=== PATIENT | male | born 1990 | race Caucasian/White ===

== ENCOUNTER → 2019-07-08 | Outpatient (CLI) | payer OTHER ==
--- NOTE | 2019-07-08 10:45 | CT ---
EXAMINATION TYPE: CT sinus wo con DATE OF EXAM: 07/08/2019 COMPARISON: NONE HISTORY: Acute sinusitis per order. Headaches with dizziness and nausea for a few weeks per patient. CT DLP: 593.70 mGycm. Automated Exposure Control for Dose Reduction was Utilized. TECHNIQUE: CT scan of the sinuses is performed without contrast, axial images are obtained, coronal r eformatted images are also reviewed. FINDINGS: Mild lobulated mucosal thickening inferiorly in both maxillary sinuses. Remainder of [place] sinuses are clear without suspicious opacification or air-fluid levels. The ostiomeatal complex is patent bilaterally on coronal image 17. Visualized portion of mastoid air cells show no abnormal opacification. Some patchy soft tissue densi ty bilateral extra auditory canals is thought to reflect cerumen. The globes are intact bilaterally. Visualized brain parenchyma unremarkable. Slight asymmetric prominence supraclinoid segment distal r ight internal carotid artery axial image 34. IMPRESSION: Mild bilateral inferior chronic maxillary sinus disease. No acute sinusitis identified c urrently. Cannot exclude aneurysm distal right internal carotid artery. Advise CTA or MRA of the circ le of [place] follow-up.
== END | disposition home or self-care (01) ==
LOC: RADCTMAIN 08:16
PROVIDERS: ATTEND Family Medicine
DX: J32.0 Chronic maxillary sinusitis (principal)
CPT/HCPCS: 70486

== ENCOUNTER → 2019-08-15 | Outpatient (CLI) | payer OTHER ==
--- NOTE | 2019-08-15 15:32 | CT ---
EXAMINATION TYPE: CT angio neck DATE OF EXAM: 08/15/2019 HISTORY: Rt internal carotid artery aneurysm COMPARISON: 07/08/2019 CT DLP: 312.6 mGycm. Automated Exposure Control for Dose Reduction was Utilized. TECHNIQUE: CTA scan of the neck is performed with IV Contrast, patient injected with 65 mL of Isovue 370, axial images are obtained, coronal and sagittal reformatted images are reviewed. Three-D recons tructed images are created on an independent workstation and reviewed. Source images are reviewed. FINDINGS: Carotid/Vascular Structures: Common origin of the innominate and left common carotid artery. Vertebra l arteries are codominant. No significant stenosis at the carotid bifurcations is evident. IMPRESSION: 1. No flow-limiting stenosis bilateral carotid bifurcations. No aneurysmal dilatation of the internal carotid arteries within the [id number]. 2. [place] was not evaluated during this examination. MRA or CTA of the [place] is re commended as on the prior examination
== END | disposition home or self-care (01) ==
LOC: RADCTMAIN 08:09
PROVIDERS: ATTEND Family Medicine
DX: I67.1 Cerebral aneurysm, nonruptured (principal)
CPT/HCPCS: 70498; Q9967

== ENCOUNTER → 2019-09-02 | Outpatient (CLI) | payer OTHER ==
--- NOTE | 2019-09-02 11:58 | MR ---
EXAMINATION TYPE: MR angio head wo con DATE OF EXAM: 09/02/2019 COMPARISON: CTA 08/15/2019 HISTORY: Family hx of aneurysm, MRA head recommended on CT report TECHNIQUE: Utilizing 3-D [id number] intracranial MRA of the [place] was performed. FINDINGS: The vertebrobasilar and carotid systems are patent. There is no sizable aneurysm or vascular malform ation. Left vertebral artery is dominant. Vertebrobasilar and carotid systems and visualized. Anteri or cerebral artery, posterior cerebral artery, middle cerebral arteries are normal course and caliber with no diagnostic evidence of sizable aneurysm. IMPRESSION: 1. No evidence of vascular malformation or sizable aneurysm.
== END | disposition home or self-care (01) ==
LOC: RADMRIMAIN 11:28
PROVIDERS: ATTEND Family Medicine
DX: I67.1 Cerebral aneurysm, nonruptured (principal); Z82.49 Family history of ischemic heart disease and other diseases of the circulatory system
CPT/HCPCS: 70544